=== PATIENT | female | born 1950 | race African-American/Black ===

== ENCOUNTER → 2016-03-15 | Outpatient (CLI) | payer OTHER, MEDICAID ==
--- NOTE | 2016-03-15 18:13 | MA ---
Screening Digital Mammogram With iCAD Indication: Routine screening. History of breast reduction surgery. Technique: Standard cephalocaudal and mediolateral oblique projections were obtained. This examinat ion was processed by the iCAD computer-aided detection system. Comparison: February 2015, January 2014 and November 2011. Breast density: Type B. Findings: CAD was reviewed. No suspicious microcalcifications, mass, or architectural distortion. Impression: Negative mammogram BI-RADS 1: Negative Recommendation: Routine screening is recommended in one year. [facility] will send a result letter to the patient. Negative mammography should not preclude additional workup of a clinically suspicious finding. The patient's information is entered into a reminder system with a target due date for her next mammo gram.
== END ==
LOC: FIMAGING 15:18
DX: Z12.31 Encounter for screening mammogram for malignant neoplasm of breast (principal)
CPT/HCPCS: G0202

== ENCOUNTER → 2016-04-13 | Outpatient (CLI) | payer OTHER, MEDICAID | LOC: BHCLAF 11:00 | PROVIDERS: ATTEND Internal Medicine Cardiovascular Disease | DX: I47.1 Supraventricular tachycardia (principal); I10 Essential (primary) hypertension; R00.2 Palpitations; G47.34 Idiopathic sleep related nonobstructive alveolar hypoventilation; E78.00 Pure hypercholesterolemia, unspecified | CPT/HCPCS: 93005-PO ==

== ENCOUNTER → 2016-09-10 | Outpatient (CLI) | payer OTHER, MEDICAID | LOC: CIMAGING 11:45 | PROVIDERS: ATTEND Internal Medicine Pulmonary Disease | DX: J98.11 Atelectasis (principal) | CPT/HCPCS: 71020-PO; 82164-90 ==

== ENCOUNTER 2017-02-03 13:03 | Emergency (ER) | payer OTHER, MEDICAID ==
[2017-02-03 13:28] VITALS: BP 132/76; PULSE 87; RESP 18; TEMP 97.9; O2SAT 91
--- NOTE | 2017-02-03 13:29 | EDPHY ---
HPI/HX/ROS/PE/MDM Narrative: CHIEF COMPLAINT: Painful bump and left groin HPI: The patient is a 66-year-old female with history of atrial fibrillation, not on anticoagulants, and no history of diabetes. The patient complains of a painful bump in her left groin that she noted approximately 1 week ago while in the shower. The area has decreased in size and there has been no drainage. She denies fever, surrounding redness or other systemic symptoms. REVIEW OF SYSTEMS: Aside from elements discussed in the HPI, a comprehensive 10-point review of systems was reviewed and is negative. PMH: Includes atrial fibrillation, arthritis, hypertension. No history of diabetes. Not on anticoagulants. SOCIAL HISTORY: Primary doctors located at [facility]. She denies alcohol or drug abuse. PHYSICAL EXAM: General:Patient is alert, in no acute distress. ENT:Eyes are normal to inspection. ENT inspection normal. Skin: Left groin. A painful area of fluctuance, measuring approximately the size of a reason, 1 cm in diameter is present in the skin crease of her left groin. It does not involve the labia. There is no surrounding erythema. There is no surrounding rash. There is no drainage. There are no genital lesions. Neuro: Oriented x3. Normal motor function. Normal sensory function. MDM: This patient presents with small area of fluctuance in her left groin skin fold. This is either a sebaceous cyst or possibly an early abscess. Given that the lesion is diminishing in size in severity, I think urgent drainage is not necessary. I gave the patient the option of trial of oral antibiotics verses incision and drainage here in the emergency department. I am somewhat concerned given the patient's habitus and location of the lesion in her groin that it will be at increased risk of infection should we break the skin barrier. The patient elects to try a course of oral antibiotics and understands that she may need to return to the emergency department for incision and drainage if this fails. General Time Seen by Provider: 02/03/17 13:14 Initial Vital Signs: Initial Vital Signs Temperature (C) 36.6 C 02/03/17 13:23 Heart Rate 87 02/03/17 13:23 Respiratory Rate 18 02/03/17 13:23 Blood Pressure 132/76 H 02/03/17 13:23 O2 Sat (%) 91 L 02/03/17 13:23 O2 Delivery Mode Room Air Allergies/Adverse Reactions: Benzodiazepines Allergy (Verified 02/03/17 13:12) codeine [Codeine] Allergy (Verified 02/03/17 13:12) fentanyl Allergy (Verified 02/03/17 13:12) Iodinated Contrast- Oral and IV Dye Allergy (Verified 02/03/17 13:13) meperidine HCl [From Demerol] Allergy (Verified 02/03/17 13:12) morphine Allergy (Verified 02/03/17 13:12) Penicillins Allergy (Verified 02/03/17 13:12) Home Medications: Medication Instructions Recorded Aspirin 325 mg (*) 02/03/17 Chlorthalidone 25 mg (*) 02/03/17 Diltiazem 02/03/17 Doxycycline Hyclate [Vibramycin] 100 mg PO BID #14 cap 02/03/17 Proventil Inhaler HFA (*) 02/03/17 Steroid Inhaler 02/03/17 VITAMIN D 02/03/17 Xopenex Hfa Inhaler (*) 02/03/17 Departure - Departure Disposition: Home, Routine, Self-Care Clinical Impression: Abscess Condition: Good Instructions: Abscess (ED) Additional Instructions: Take antibiotics as prescribed. If symptoms do not improve within the next 72 hours, or if the area gets bigger at any time, return to the ED and we will likely have to pretty the bump. Also return to the ED if you develop fever, severe pain, redness or other symptoms. Prescriptions: Doxycycline Hyclate [Vibramycin] 100 mg PO BID #14 cap
== END 2017-02-03 13:33 | disposition home or self-care (01) ==
LOC: CED 13:03
DX: L02.214 Cutaneous abscess of groin (principal); I10 Essential (primary) hypertension; Z79.82 Long term (current) use of aspirin

== ENCOUNTER 2017-06-07 11:27 | Emergency (ER) | payer OTHER, MEDICAID ==
[2017-06-07] MEDS ORDERED: ASPIRIN 81 MG CHEWABLE TAB PO ONE (11:50)
--- NOTE | 2017-06-07 12:10 | EDPHY ---
HPI/HX/ROS/PE/MDM Narrative: CHIEF COMPLAINT: Shortness of breath HPI: The patient is a 66-year-old female with numerous medical hip problems including history of prior blood clot, sarcoidosis. She states that she got" the flu"in the middle of May and was treated with steroids and albuterol nebulizer by her primary physician, but no x-ray was performed. She notes continuing cough and shortness of breath since that time as well as a decrease in energy. She also notes left calf pain that has been present for 1-2 weeks as well as some right shoulder pain. She denies chest pain. She denies fever or productive cough. She is not on anticoagulants. REVIEW OF SYSTEMS: Aside from elements discussed in the HPI, a comprehensive 10-point review of systems was reviewed and is negative. PMH: Includes sarcoidosis, history of DVT, obesity SOCIAL HISTORY: Retired, denies drug abuse. PHYSICAL EXAM: General:Patient is alert, in no acute distress. ENT:Eyes are normal to inspection. ENT inspection normal. Neck: Normal inspection. Full range of motion. Respiratory:No respiratory distress. Breath sounds normal bilaterally. Cardiovascular: Regular rate and rhythm. Strong peripheral pulses. Normal cap refill. Abdomen:The abdomen is nontender to palpation. There are no peritoneal signs. There are normal bowel sounds. Back: Normal to inspection. No tenderness to palpation. Skin: Normal color. No rash. Warm and dry. Extremities: Normal appearance. Full range of motion. Mild tenderness to the left calf is noted. Neuro: Oriented x3. Normal motor function. Normal sensory function. ED Course: Chest x-ray: Normal. Ultrasound left lower extremity: Negative for DVT or other abnormality. MDM: This patient presents to the emergency department with ongoing shortness of breath for at least 2-3 weeks. Chest x-rays negative for pneumonia or pneumothorax. The patient's D-dimer was mildly elevated but she is allergic to IV contrast dye. An ultrasound was performed of her leg which is negative for DVT. Given that this is negative and that her symptoms do not sound consistent with an acute pulmonary embolus, I do not think that emergent V/Q scan is indicated. I will have the patient follow up closely with her primary care physician. I see no signs of acute coronary syndrome or unstable angina. The patient is in no respiratory distress and her room air pulse ox is normal. - Data Points Imaging Results: Imaging Impressions Chest X-Ray 05/01/18 11:50 Impression: No acute findings in the chest. Extremity Venous Study 06/07/17 12:40 Impression: No deep venous thrombosis left leg. Findings and recommendations discussed with Emergency Department physician, Tony Ames MD at 13:15 hour, 06/07/2017. Final report concurs with initial preliminary interpretation. Laboratory Results: Laboratory Results 06/07/17 12:20 06/07/17 12:20 06/07/17 06/07/17 06/07/17 12:20 12:20 12:20 WBC 10.23 10^3/uL H 10^3/uL (3.80-9.50) RBC 4.88 10^6/uL 10^6/uL (4.18-5.33) Hgb 12.0 g/dL L g/dL (12.6-16.3) Hct 38.1 % % (38.0-47.0) MCV 78.1 fL L fL (81.5-99.8) MCH 24.6 pg L pg (27.9-34.1) MCHC 31.5 g/dL L g/dL (32.4-36.7) RDW 19.6 % H % (11.5-15.2) Plt Count 299 10^3/uL 10^3/uL (150-400) MPV 9.9 fL fL (8.7-11.7) Neut % (Auto) 78.8 % H % (39.3-74.2) Lymph % (Auto) 13.1 % L % (15.0-45.0) [place] % (Auto) 5.5 % % (4.5-13.0) Eos % (Auto) 1.8 % % (0.6-7.6) Baso % (Auto) 0.4 % % (0.3-1.7) Nucleat RBC Rel Count 0.0 % % (0.0-0.2) Absolute Neuts (auto) 8.07 10^3/uL H 10^3/uL (1.70-6.50) Absolute Lymphs (auto) 1.34 10^3/uL 10^3/uL (1.00-3.00) Absolute Monos (auto) 0.56 10^3/uL 10^3/uL (0.30-0.80) Absolute Eos (auto) 0.18 10^3/uL 10^3/uL (0.03-0.40) Absolute Basos (auto) 0.04 10^3/uL 10^3/uL (0.02-0.10) Absolute Nucleated RBC 0.00 10^3/uL 10^3/uL (0-0.01) Immature Gran % 0.4 % % (0.0-1.1) Immature Gran # 0.04 10^3/uL 10^3/uL (0.00-0.10) D-Dimer 0.63 ug/mLFEU H ug/mLFEU (0.00-0.50) Sodium 144 mEq/L mEq/L (135-145) Potassium 3.4 mEq/L L mEq/L (3.5-5.2) Chloride 103 mEq/L mEq/L (97-110) Carbon Dioxide 30 mEq/l mEq/l (22-31) Anion Gap 11 mEq/L mEq/L (8-16) BUN 17 mg/dL mg/dL (7-23) Creatinine 0.8 mg/dL mg/dL (0.6-1.0) Estimated GFR > 60 Glucose 100 mg/dL mg/dL (70-100) Calcium 9.2 mg/dL mg/dL (8.5-10.4) Creatine Kinase 192 IU/L H IU/L (0-156) CK-MB (CK-2) Fraction 1.01 ng/mL ng/mL (0.00-4.55) CK-MB (CK-2) % 0.5 % % (0.0-4.0) Creatine Kinase Interp NEGATIVE (NEGATIVE) Troponin I < 0.012 ng/mL ng/mL (0.000-0.034) Medications Given: Discontinued Medications Aspirin (Aspirin) 324 mg PO EDNOW ONE Stop: 06/07/17 11:51 Last Admin: 06/07/17 12:26 Dose: 324 mg General Time Seen by Provider: 06/07/17 11:50 Initial Vital Signs: Initial Vital Signs Temperature (C) 36.9 C 06/07/17 11:32 Heart Rate 85 06/07/17 11:32 Respiratory Rate 18 06/07/17 11:32 Blood Pressure 137/79 H 06/07/17 11:32 O2 Sat (%) 96 06/07/17 11:32 O2 Delivery Mode Room Air Allergies/Adverse Reactions: Benzodiazepines Allergy (Verified 06/07/17 11:44) codeine [Codeine] Allergy (Verified 06/07/17 11:44) fentanyl Allergy (Verified 06/07/17 11:44) Iodinated Contrast- Oral and IV Dye Allergy (Verified 06/07/17 11:44) meperidine HCl [From Demerol] Allergy (Verified 06/07/17 11:44) morphine Allergy (Verified 06/07/17 11:44) Penicillins Allergy (Verified 06/07/17 11:44) Home Medications: Medication Instructions Recorded Aspirin 325 mg (*) 02/03/17 Chlorthalidone 25 mg (*) 02/03/17 Diltiazem 02/03/17 Proventil Inhaler HFA (*) 02/03/17 VITAMIN D 02/03/17 Xopenex Hfa Inhaler (*) 02/03/17 Abreva (*) 06/07/17 Aspirin 325 mg (*) 06/07/17 Departure - Departure Disposition: Home, Routine, Self-Care Clinical Impression: Dyspnea Condition: Good Instructions: Dyspnea (ED) Additional Instructions: Follow-up with her primary care physician within 72 hr. Return to the emergency department for chest pain, shortness of breath, fever or other worsening of condition. Referrals: MARTHAACULLEN [Other] - As per Instructions
--- NOTE | 2017-06-07 12:30 | CPEKG ---
Heart Rate: 83 RR Interval: 723 P-R Interval: 200 QRSD Interval: 84 QT Interval: 392 QTC Interval: 461 P [place]: 74 QRS [place]: 2 T Wave [place]: 12 EKG Severity - ABNORMAL ECG - EKG Impression: SINUS RHYTHM EKG Impression: LEFT VENTRICULAR HYPERTROPHY Electronically Signed By: Nadir Mock 09-Jun-2017 07:52:17
[2017-06-07 12:36] LABS: CREATINE KINASE 192 IU/L (0-156)
[2017-06-07 12:40] LABS: PLATELET COUNT 299 10^3/uL (150-400)
[2017-06-07 13:32] VITALS: BP 119/76
== END 2017-06-07 13:35 | disposition home or self-care (01) ==
LOC: CED 11:27
DX: R06.00 Dyspnea, unspecified (principal); Z79.82 Long term (current) use of aspirin
CPT/HCPCS: 71046-PO; 80048-PO; 82550-PO; 82553-PO; 84484-PO; 85025-PO; 85378-PO; 93971-PO

== ENCOUNTER → 2017-11-04 | Outpatient (CLI) | payer OTHER, MEDICAID | LOC: BHFA 09:30 | PROVIDERS: ATTEND Internal Medicine Cardiovascular Disease | DX: R07.9 Chest pain, unspecified (principal); R06.02 Shortness of breath | CPT/HCPCS: 78452; 93017; A9500; J2785 ==

== ENCOUNTER 2017-12-14 09:02 | Observation (INO) | payer OTHER, MEDICAID ==
[2017-12-14] MEDS ORDERED: methylPREDNISolone SOD SUCC 125 MG/2 ML VIAL IVP ONE (09:05)
[2017-12-14] MEDS ORDERED: ASPIRIN EC 325 MG TAB PO ONE (09:05)
[2017-12-14] MEDS ORDERED: NS 1,000 ML IV ONE (09:05)
[2017-12-14] MEDS ORDERED: FAMOTIDINE 20 MG/NACL 50 ML IV ONE (09:05)
[2017-12-14 09:42] LABS: PLATELET COUNT 294 10^3/uL (150-400)
[2017-12-14 09:54] LABS: INR 0.97 (0.83-1.16); PROTIME(PATIENT) 13.1 SEC (12.0-15.0)
[2017-12-14] MEDS ORDERED: SIMETHICONE 80 MG TAB CHEW PO ONE ×2 (11:00→18:15)
[2017-12-14] MEDS: LEVALBUTEROL INHALER 200 PUFFS/15 GM MDI IH SCH ×3 (15:55→21:41)
[2017-12-14] MEDS: FAMOTIDINE 20 MG TAB PO SCH (19:31)
--- NOTE | 2017-12-14 22:44 | CPEKG ---
Test Reason : OPEN Blood Pressure : / mmHG Vent. Rate : 093 BPM Atrial Rate : 093 BPM P-R Int : 178 ms QRS Dur : 073 ms QT Int : 353 ms P-R-T Axes : 053 000 017 degrees QTc Int : 440 ms Sinus rhythm Consider left atrial enlargement Probable left ventricular hypertrophy Confirmed by Prosper Nicolas ([id number]) on 12/14/2017 10:43:51 PM Referred By: Confirmed By:Prosper Nicolas
[2017-12-15] MEDS: LEVALBUTEROL INHALER 200 PUFFS/15 GM MDI IH SCH ×2 (06:11→11:28)
[2017-12-15] MEDS ORDERED: ASPIRIN EC 325 MG TAB PO ONE (07:00)
[2017-12-15] MEDS ORDERED: FAMOTIDINE 20 MG/NACL 50 ML IV ONE (07:00)
[2017-12-15] MEDS ORDERED: methylPREDNISolone SOD SUCC 125 MG/2 ML VIAL IVP ONE (07:00)
[2017-12-15] MEDS: Diltiazem Hcl [Cartia Xt 180mg] 180 MG PO SCH ×2 (07:27→13:11)
[2017-12-15] MEDS: METOPROLOL SUCCINATE XR 25 MG TAB PO SCH ×2 (07:27→13:11)
[2017-12-15] MEDS: ASPIRIN 325 MG TAB PO SCH ×2 (08:48→09:18)
[2017-12-15] MEDS ORDERED: FLUTICASONE IH SCH (09:00)
[2017-12-15] MEDS ORDERED: CHLORTHALIDONE 25 MG TAB PO SCH (09:00)
[2017-12-15] MEDS ORDERED: VILANTEROL IH SCH (09:00)
--- NOTE | 2017-12-15 10:21 | PDANEPAE ---
ANE History of Present Illness [facility] ANE Past Medical History - Cardiovascular History Hx Hypertension: Yes Hx Arrhythmias: Yes - Pulmonary History Hx Oxygen in Use at Home: Yes O2 in Use at Home (L/minute): 2 Hx Sleep Apnea: Yes - Endocrine History Hx Diabetes: No - GI History GERD: mild GERD Comment: controlled ANE Review of Systems Review of systems is: negative Review of Systems: - Exercise capacity Exercise capacity: >=4 METS ANE Patient History - Allergies Allergies/Adverse Reactions: Benzodiazepines Allergy (Verified 06/07/17 11:44) codeine [Codeine] Allergy (Verified 06/07/17 11:44) fentanyl Allergy (Verified 06/07/17 11:44) Iodinated Contrast- Oral and IV Dye Allergy (Verified 06/07/17 11:44) meperidine HCl [From Demerol] Allergy (Verified 06/07/17 11:44) morphine Allergy (Verified 06/07/17 11:44) Penicillins Allergy (Verified 06/07/17 11:44) shellfish derived Allergy (Verified 12/07/17 17:06) sumatriptan [From Imitrex] Allergy (Verified 12/07/17 17:06) - Home Medications Home medications: home medication list seen and reviewed Home Medications: Aspirin [Aspirin 325 mg (*)] 325 mg PO DAILY 12/14/17 [Last Taken 12/14/17] Chlorthalidone [Chlorthalidone 25 mg (*)] 12.5 mg PO DAILY 12/14/17 [Last Taken 12/13/17] Diltiazem HCl [Cartia XT 180mg] 180 mg PO DAILY 12/14/17 [Last Taken 12/13/17] Famotidine [Pepcid 20 MG (*)] 20 mg PO BID 12/14/17 [Last Taken 12/13/17] Fluticasone/Vilanterol [Breo Ellipta 200-25 Mcg INH] 1 puffs IH DAILY 12/14/17 [ Last Taken 12/14/17 07:00] Levalbuterol Inhaler [Xopenex Hfa Inhaler (*)] 2 puffs IH QID 12/14/17 [Last Taken 12/14/17] Metoprolol Succinate Xr [Toprol Xl 25 mg (*)] 12.5 mg PO DAILY 12/14/17 [Last Taken 11/06/18] - NPO status NPO Status: no food or drink >8 hours - Anes Hx Anes Hx: no prior problems - Smoking Hx Smoking Status: Never smoked - Family Anes Hx Family Anes Hx: none ANE Labs/Vital Signs - Labs Result Diagrams: 12/14/17 09:20 12/14/17 09:20 - Vital Signs Vital Signs: reviewed preoperatively; see RN documention for details Blood Pressure: 143/85 Heart Rate: 71 Respiratory Rate: 12 O2 Sat (%): 92 Height: 183 cm Weight: 118.2 kg ANE Physical Exam - Airway Neck exam: FROM Mallampati Score: Class 3 Mouth exam: poor dentition - Pulmonary Pulmonary: no respiratory distress - Cardiovascular Cardiovascular: regular rate and rhythym - ASA Status ASA Status: III ANE Anesthesia Plan Total IV Anesthesia: Yes
[2017-12-15] MEDS ORDERED: ACETAMINOPHEN 500 MG TAB PO PRN (10:24)
[2017-12-15] MEDS ORDERED: HYDROmorphONE/DILAUDID 2 MG/ML INJ IVP PRN (10:24)
[2017-12-15] MEDS ORDERED: ALBUTEROL 3 ML DEYVIAL IH PRN (10:24)
[2017-12-15] MEDS ORDERED: NALOXONE HCL 0.4 MG/ML INJ IVP PRN (10:24)
[2017-12-15] MEDS ORDERED: DEXAMETHASONE 4 MG/ML VIAL IVP PRN (10:24)
[2017-12-15] MEDS ORDERED: ONDANSETRON 4 MG/2 ML VIAL IVP PRN ×2 (10:24→11:34)
[2017-12-15] MEDS ORDERED: oxyCODONE IR 5 MG TAB PO PRN (10:24)
--- NOTE | 2017-12-15 10:25 | POSTANESTH ---
Post Anesthetic Evaluation Cardiovascular Status: Similar to Pre-Op Cond Respiratory Status: Similar to Pre-op Cond. Level of Consciousness/Mental Status: Moderately Sleepy Pain Control: Adequate, Prn Tx Ordered Nausea/Vomiting Control: Adequate, Prn Tx Ordered Complications Possibly Related to Anesthesia: None Noted
[2017-12-15] MEDS ORDERED: MIDAZOLAM 2 MG/2 ML VIAL ONE (10:44)
[2017-12-15] MEDS ORDERED: LIDOCAINE 1% 300 MG/30 ML SDV ONE (10:44)
[2017-12-15] MEDS ORDERED: fentaNYL 100 MCG/2 ML INJ ONE (10:44)
[2017-12-15] MEDS ORDERED: IOPAMIDOL (ISOVUE-370) 150 ML BTL IV ONE (10:45)
[2017-12-15] MEDS ORDERED: PROPOFOL/EMULSION 500 MG/50 ML BOTTLE IV ONE (10:47)
[2017-12-15] MEDS ORDERED: LIDOCAINE 2% 100 MG/5 ML SYR ONE (11:03)
--- NOTE | 2017-12-15 11:06 | PDHPUP ---
History & Physical Update H&P update statement: This history and physical update is based on an assessment of the patient which was completed after admission or registration (within 24 hours), but prior to the surgery/procedure. H&P update: H&P reviewed & patient examined, no change in patient's condition since H&P completed
[2017-12-15] MEDS ORDERED: ATROPINE SULFATE 1 MG/10 ML SYR IVP PRN (11:34)
[2017-12-15] MEDS ORDERED: NITROGLYCERIN 0.4 MG BTL SL PRN (11:34)
--- NOTE | 2017-12-15 11:46 | CPIP ---
DATE OF PROCEDURE: 12/14/2017 PROCEDURE: 1. Coronary angiography. 2. Left ventriculography. INDICATION: 1. Chest pain concerning for an anginal equivalent. 2. Abnormal nuclear stress test that is intermediate risk. ACCESS: Patient was prepped and draped in sterile fashion. 1% lidocaine was used to anesthetize the right inguinal region. A 6-[place] introducer sheath was placed selectively into the right common fe moral artery via modified Seldinger technique. CORONARY ANGIOGRAPHY: A 6-[place] JL4 was advanced to left main coronary artery and images obtained. The left main coronary artery trifurcated into an LAD, ramus, and circumflex coronary arteries. The left main coronary artery appeared normal. Left anterior descending coronary artery gave rise to 1 prominent diagonal branch. The left anterior descending coronary artery and its diagonal branch appe ared normal. The ramus coronary artery was a small vessel. The ramus coronary artery appeared albin l. The circumflex coronary artery is a moderate-sized vessel. The circumflex coronary artery gave r ise to 1 prominent OM branch, as well as 1 smaller OM branch. The circumflex coronary artery and its complement of OM branches appeared normal. 6-[place] JR4 was advanced to the right coronary artery and images obtained. The right coronary arter y is dominant. The right coronary artery appeared normal. LEFT VENTRICULOGRAPHY: A 6-[place] pigtail catheter was advanced in the left ventricle and images obt ained. Left ventricle is normal size, had normal systolic function. Estimated ejection fraction was 60%. COMPLICATIONS: None. CONCLUSIONS: 1. Normal coronary arteries. 2. Normal left ventricular size and systolic function. /[id number]/MODL
[2017-12-15] MEDS: FAMOTIDINE 20 MG TAB PO SCH (12:19)
[2017-12-15] MEDS ORDERED: ACETAMINOPHEN 325 MG TAB PO PRN (13:12)
[2017-12-15] MEDS ORDERED: SIMETHICONE 80 MG TAB CHEW PO ONE (15:30)
[2017-12-15 15:39] VITALS: BP 119/74
[2017-12-15] MEDS ORDERED: PNEUMOC 13-VAL CONJ-DIP CRM/PF 0.5 ML SYR IM ONE (15:46)
== END 2017-12-15 16:39 | disposition home or self-care (01) ==
LOC: FCATH 09:02 → F2W 13:22
PROVIDERS: ADMIT Internal Medicine Cardiovascular Disease; ATTEND Internal Medicine Cardiovascular Disease
DX: R07.9 Chest pain, unspecified (principal); R94.39 Abnormal result of other cardiovascular function study; I10 Essential (primary) hypertension; J45.909 Unspecified asthma, uncomplicated
CPT/HCPCS: 90670; 93005; 93458; C1760; G0009; J1200; J1644; J2001; J2704; J2930; Q9967; J2250; J3010

== ENCOUNTER 2018-05-16 05:52 | Inpatient (IN) | payer OTHER, MEDICAID ==
--- NOTE | 2018-05-15 15:34 | PDGENHP ---
History & Physical Chief Complaint: Left knee osteoarthritis History of Present Illness: Claudia is a pleasant 67 year old female who presents to the office with left knee osteoarthritis. She has undergone conservative treatment and is to the point where it s requiring a total knee arthroplasty. She has been cleared by her geology professor for the procedure and has seen her maintainer central office prior to the procedure as well. Pertinent Past, Social, Family History: PMH: anxiety. arthritis, asthma, blood clots, heart problems, HTN, lung disease. SH: nonsmoker. FH: non-contributory Relevant Physical Exam: The patient has moderate effusion noted to the knee. She is gapping to a valgus stress with a firm endpoint suggesting loss of cartilage height. She is tender to the osteochondral junction of the medial side more so than the lateral side. She is nontender to the actual joint line medial or laterally. X-ray exam shows [id number] osteoarthritic changes to the medial compartment as well as the patellofemoral compartment. Cardiorespiratory Assessment: RRR, CTA
[2018-05-16] MEDS ORDERED: ROPIVACAINE 0.2% 80 MG, EPINEPHrine 0.2 MG, KETOROLAC TROMETHAMINE 30 MG, morphINE 10 M... IU ONE (06:00)
[2018-05-16] MEDS ORDERED: TRANEXAMIC ACID 3,000 MG in NS (SYRINGE) 50 ML IRR ONE (06:00)
[2018-05-16] MEDS ORDERED: CLINDAMYCIN 900 MG/DEXTROSE 50 ML IV ONE (06:02)
[2018-05-16] MEDS ORDERED: LR 1,000 ML IV ONE (06:04)
[2018-05-16] MEDS ORDERED: THROMBIN (BOVINE) 5,000 UNIT VIAL TP ONE (06:30)
[2018-05-16] MEDS ORDERED: CALCIUM CHLORIDE 1 GM/10 ML INJ ONE (06:30)
[2018-05-16] MEDS ORDERED: TRANEXAMIC ACID 3,000 MG/50 ML BAG IRR ONE (06:31)
[2018-05-16] MEDS ORDERED: BUPIVACAINE/EPI 0.5% 30 ML SDV ONE (06:36)
[2018-05-16] MEDS ORDERED: BACITRACIN 50,000 UNITS/10 ML SYR IRR ONE (06:37)
[2018-05-16] MEDS ORDERED: POLYMYXIN B SULFATE 500,000 UNIT/10 ML SYR IRR ONE (06:37)
--- NOTE | 2018-05-16 06:49 | PDANEPAE ---
ANE History of Present Illness OA here for L TKA ANE Past Medical History - Cardiovascular History Hx Hypertension: Yes Hx Arrhythmias: Yes Hx Chest Pain: Yes Hx Coronary Artery / Peripheral Vascular Disease: No Hx CHF / Valvular Disease: No Hx Palpitations: Yes Cardiovascular History Comment: HLD, DVT, Afib with RVR s/p ablation, pt avoids caffeine and chocolate. - Pulmonary History Hx COPD: No Hx Asthma/Reactive Airway Disease: Yes Hx Recent Upper Respiratory Infection: No Hx Oxygen in Use at Home: Yes Hx Sleep Apnea: No Sleep Apnea Screening Result - Last Documented: Positive Pulmonary History Comment: Sarcoidosis, Nocturnal hypoxia, uses 2L/min at night , JAYLIN triggers, pt reports possible central sleep apnea. - Neurologic History Hx Cerebrovascular Accident: No Hx Seizures: No Hx Dementia: No Neurologic History Comment: Migraines. - Endocrine History Hx Diabetes: No - Renal History Hx Renal Disorders: No - Liver History Hx Hepatic Disorders: No - Neurological & Psychiatric Hx Hx Neurological and Psychiatric Disorders: Yes Neurological / Psychiatric History Comment: Migraines, situational anxiety. - Cancer History Hx Cancer: No - Congenital Disorder History Hx Congenital Disorders: No - GI History Hx Gastrointestinal Disorders: Yes Gastrointestinal History Comment: GERD, IBS-constipation. - Other Health History Other Health History: Obesity, epistaxis. Upper dentures, lower partial, glasses. - Chronic Pain History Chronic Pain: Yes - Surgical History Prior Surgeries: L shoulder surgery ([facility]) 2005. Hysterectomy 1988. L Heart Catheterization 12/2017. Afib Ablation 2002 ANE Review of Systems Review of Systems: - Exercise capacity Exercise capacity: >=4 METS ANE Patient History - Allergies Allergies/Adverse Reactions: Benzodiazepines Allergy (Verified 04/27/18 10:15) Dyspnea codeine [Codeine] Allergy (Verified 04/27/18 10:15) Dyspnea fentanyl Allergy (Verified 04/27/18 10:15) Dyspnea Iodinated Contrast- Oral and IV Dye Allergy (Verified 06/07/17 11:44) meperidine HCl [From Demerol] Allergy (Verified 04/27/18 10:15) Itching morphine Allergy (Verified 04/27/18 10:15) Dyspnea Penicillins Allergy (Verified 04/27/18 10:15) Itching shellfish derived Allergy (Verified 12/07/17 17:06) sumatriptan [From Imitrex] Allergy (Verified 04/27/18 10:15) Dyspnea - Home Medications Home medications: home medication list seen and reviewed Home Medications: Chlorthalidone [Chlorthalidone 25 mg (*)] 12.5 mg PO HS 12/14/17 [Last Taken 07/25] Famotidine [Pepcid 20 MG (*)] 20 mg PO HS 12/14/17 [Last Taken 12/13/17] Fluticasone/Vilanterol [Breo Ellipta 200-25 Mcg INH] 1 puffs IH DAILY 12/14/17 [ Last Taken 12/14/17 07:00] Levalbuterol Inhaler [Xopenex Hfa Inhaler (*)] 1 puffs IH QID PRN 12/14/17 [ Last Taken 12/14/17] Metoprolol Succinate Xr [Toprol Xl 25 mg (*)] 12.5 mg PO DAILY 12/14/17 [Last Taken 12/13/17] Acetaminophen [Tylenol 325mg (*)] 325 mg PO Q6HRS PRN 04/27/18 [Last Taken Unknown] Aspirin [Aspirin 325 mg (*)] 325 mg PO DAILY 04/27/18 [Last Taken Unknown] Cholecalciferol Vit D3 [Vitamin D3 (*)] 1,000 units PO DAILY 04/27/18 [Last Taken Unknown] Multivitamins [Multivitamin (*)] 1 each PO DAILY 04/27/18 [Last Taken Unknown] Diltiazem 05/12/18 [Last Taken Unknown] - NPO status NPO Status: no food or drink >8 hours NPO Since - Liquids (Date): 05/15/18 NPO Since - Liquids (Time): 23:30 NPO Since - Solids (Date): 05/15/18 NPO Since - Solids (Time): 20:30 - Anes Hx Anes Hx: post operative nausea and vomiting - Smoking Hx Smoking Status: Never smoked - Family Anes Hx Family Anes Hx: none Family Hx Anesthesia Complications: None. ANE Labs/Vital Signs - Vital Signs Vital Signs: reviewed preoperatively; see RN documention for details Height: 182.88 cm Weight: 117.934 kg ANE Physical Exam - Airway Neck exam: FROM Mallampati Score: Class 3 Mouth exam: poor dentition, dentures - Pulmonary Pulmonary: no respiratory distress - Cardiovascular Cardiovascular: regular rate and rhythym - ASA Status ASA Status: III ANE Anesthesia Plan Anesthesia Plan: GA with mask, spinal Regional Anesthesia: single shot NB, adductor canal FNB Total IV Anesthesia: Yes
[2018-05-16] MEDS ORDERED: PROPOFOL/EMULSION 500 MG/50 ML BOTTLE IV ONE ×2 (07:06→08:17)
[2018-05-16] MEDS ORDERED: LIDOCAINE 2% 100 MG/5 ML SYR ONE (07:11)
[2018-05-16] MEDS ORDERED: ROPIVACAINE 0.2% 80 MG, EPINEPHrine 0.2 MG, KETOROLAC TROMETHAMINE 30 MG in SYRINGE 0 ML IU ONE (07:15)
[2018-05-16] MEDS ORDERED: HYDROCODONE/APAP 5/325 TAB PO PRN (07:57)
[2018-05-16] MEDS ORDERED: ONDANSETRON 4 MG/2 ML VIAL IVP PRN ×2 (07:57→09:05)
[2018-05-16] MEDS ORDERED: HYDROmorphONE/DILAUDID 1 MG/ML INJ IVP PRN (07:57)
[2018-05-16] MEDS ORDERED: NALOXONE HCL 0.4 MG/ML INJ IVP PRN (07:57)
[2018-05-16] MEDS ORDERED: PROMETHAZINE HCL 25 MG/ML INJ IVP PRN ×2 (07:57→09:05)
[2018-05-16] MEDS ORDERED: ACETAMINOPHEN 500 MG TAB PO PRN (07:57)
[2018-05-16] MEDS ORDERED: oxyCODONE IR 5 MG TAB PO PRN ×2 (07:57→09:05)
[2018-05-16] MEDS ORDERED: LACTULOSE 20 GM/30 ML UDCUP PO PRN (09:05)
[2018-05-16] MEDS ORDERED: TEMAZEPAM 15 MG CAP PO PRN (09:05)
[2018-05-16] MEDS ORDERED: POLYETHYLENE GLYCOL 3350 17 GM PKT PO PRN (09:05)
[2018-05-16] MEDS ORDERED: BISACODYL 10 MG SUPP PR PRN (09:05)
[2018-05-16] MEDS ORDERED: TAPENTADOL HCL 50 MG TAB PO PRN (09:05)
[2018-05-16] MEDS ORDERED: DIPHENOXYLATE/ATROPINE LOMOTIL 1 TAB PO PRN (09:05)
[2018-05-16] MEDS ORDERED: LEVALBUTEROL INHALER 200 PUFFS/15 GM MDI IH PRN (09:05)
[2018-05-16] MEDS ORDERED: MAGNESIUM HYDROXIDE 30 ML UDCUP PO PRN (09:05)
[2018-05-16] MEDS ORDERED: CYCLOBENZAPRINE 10 MG TAB PO PRN (09:05)
[2018-05-16] MEDS ORDERED: METOCLOPRAMIDE 10 MG/2 ML VIAL IVP PRN (09:05)
[2018-05-16] MEDS ORDERED: ONDANSETRON DISINTEGRATING 4 MG TAB PO PRN (09:05)
[2018-05-16] MEDS ORDERED: diphenhydrAMINE 25 MG CAP PO PRN (09:05)
[2018-05-16] MEDS ORDERED: PROMETHAZINE HCL 25 MG SUPPR PR PRN (09:05)
--- NOTE | 2018-05-16 09:05 | POSTOPPROG ---
Post Op Note Date of Operation: 05/16/18 Surgeon: Glenna Dubois 3D Technologist: coltrain Anesthesia: Epidural, IV Sedation, Other (Specify) Pre-op Diagnosis: l knee oa Procedure: l tkr Inf/Abcess present in the surg proc area at time of surgery?: No Depth: Deep Incisional (Fascial) EBL: 100-500
--- NOTE | 2018-05-16 09:14 | POSTANESTH ---
Post Anesthetic Evaluation Cardiovascular Status: Normal, Stable, Similar to Pre-Op Cond Respiratory Status: Normal, Stable, Requires Airway Assist Level of Consciousness/Mental Status: Moderately Sleepy Pain Control: Adequate, Prn Tx Ordered Nausea/Vomiting Control: Adequate, Prn Tx Ordered Complications Possibly Related to Anesthesia: None Noted
[2018-05-16] MEDS ORDERED: LABETALOL HCL 5 MG/ML 20 ML MDV ONE (10:15)
--- NOTE | 2018-05-16 10:25 | GOP ---
[f rep st] OPERATIVE REPORT DATE OF OPERATION: 05/16/2018 SURGEON: Glenna Dubois MD ACCOUNTING COORDINATOR: Tommy Lozano, CSFA, LSA ANESTHESIA: By epidural, plus adductor canal nerve block and IV sedation. PREOPERATIVE DIAGNOSIS: Left knee osteoarthritis. POSTOPERATIVE DIAGNOSIS: Left knee osteoarthritis. PROCEDURE PERFORMED: Left total knee arthroplasty. FINDINGS: INDICATIONS: This is a 67-year-old female with a several year history of left knee pain worsening wi th use and with time despite multiple conservative measures. Radiographic studies reveal ossific sig nificant osteoarthritic changes. She wishes to have surgery in order to resolve the problem. DESCRIPTION OF PROCEDURE: Patient was brought to the operating room after the left side had been bailey ntified as correct side by the patient, nurse, and physician. Once in the operating room, she was gi carlie an epidural nerve block. She was then given IV sedation. She had a tourniquet placed around the upper portion the left thigh. The left lower extremity sterilely prepped and draped in usual fashio n using KHALIDA/solution. Once prepped and draped, the limb was exsanguinated, tourniquet inflated 250 m mHg. A linear incision was made on the anterior portion of the knee, with sharp dissection carried down th rough the skin and subcutaneous layers with bleeding controlled using electrocautery. The medial par apatellar incision was then made through the extensor mechanism with patella brought to the side, but not everted. She was noted to have grade IV chondral changes of the patellofemoral joint with grade III chondral changes noted in the medial lateral compartments. ACL, as well as the medial lateral m eniscus were removed. Drill hole was made 1 cm anterior to the intercondylar notch with an intramedu llary guide placed within the femur set at 5 degrees of varus-valgus, and set to remove 10 mm of bone . Once pinned into place, oscillating saw was used to remove the distal portion of the femur. Once achieving a smooth cut, the distal cutting guide was removed. The knee was brought to further flexio n. The posterior condyles were debrided of any remaining cartilage. The sizing guide was put in amari ce, noted a size 6 femur seemed to fit best without notching the anterior cortex of the femur; theref ore, drill holes were made, and a size six 4-in-1 cutting block was put into place, and anterior, pos terior, and chamfer cuts were made. The size 6 trial was put in place noted to fit securely. The kn ee was able to achieve full extension suggesting an adequate amount of bone removed and lug holes wer e drilled for the femoral component. Femoral trial was then removed. Attention was turned to the tibia, which was brought to maximal flexion. With the tibia subluxed ant eriorly, external tibial guide was put into place, set in neutral varus-valgus, and set in slight pos terior slope. Was set to remove 2 mm of bone from the low side of the tibia, which was the lateral s bailey of the tibia. Once pinned into place, a drop vane was used to ensure proper alignment. Once prop er alignment was ensured, locking pin was put into place. An oscillating saw was used to remove the proximal portion of the tibia. Femoral trial, tibial trial, and trial liner were put into place. Th e knee was able to achieve full extension, suggesting an adequate amount of bone had been removed. Trials were then removed from the knee. The knee was brought back to maximal flexion. Tibia subluxe d anteriorly. Multiple sizers were placed on the cut surface of the tibia and a size 5 fit best. It was therefore placed in slight external rotation, pinned into place. Keel punch passed through the trial. The trial was then removed and the drill guide for press-fit component was put into place and drill holes were made. At which point, a size 5 Triathlon Tritanium tibial component from Rodney w as put into place and noted to fit securely. A size 6 left cruciate-retaining Triathlon Tritanium pr ess-fit component was put in place and noted to fit securely. Trial liners were again placed within the tibial tray and noted a 9 mm liner seemed to fit best. It gave good stability, as well as good r khalida of motion; therefore, a 9 mm size 5 Triathlon polyethylene liner was put into place and noted to fit securely. The knee was brought to full extension. Patella was then everted. Tissue was debrided from around t he patella. It was measured to be 24 mm in thickness. Oscillating saw was used to remove the portrait studio photographer ior portion of the patella, leaving 15 mm of bone. Multiple sizes were trialed on the patella and no lorenzo a 32 mm button fit best. Lug holes were drilled for a patellar component and a Triathlon Triannai um 32 mm asymmetric patella was put into place and noted to fit securely. Joint cocktail was injected into the posterior capsule, the periosteum of the femur, the tibia, and t he extensor mechanism. Tranexamic acid was irrigated through the wound and the tourniquet was deflat ed at 37 minutes. Bleeding was controlled using electrocautery. The wound was then closed in layers to include 0 Vicryl suture in a hdlfgv-nk-[id number] type stitch for the extensor mechanism with 0 Vicryl , 2-0 Vicryl suture for the subcutaneous layers. Plasma gel was injected external to the extensor me chanism, and a 3-0 V-Loc suture in a running subcuticular stitch was used to close the skin with 30 c c of Marcaine infused around the actual incision, itself. The wound was then dressed with Steri-Stri ps, Xeroform, 4 x 4, wrapped in Kerlix. Leg was completely undraped in the operating room, tournique t removed from the thigh, and an Dean wrap placed around the knee. Patient was then woken up, transfe rred onto a stretcher, and sent to recovery room in good condition. TOURNIQUET TIME: 37 minutes. /[id number]/MODL
[2018-05-16] MEDS ORDERED: LABETALOL HCL 5 MG/ML 20 ML MDV IV ONE (10:30)
--- NOTE | 2018-05-16 10:44 | PDMN ---
Medical Necessity Medical necessity: Pt meets IP criteria per MD; est los >2 mn s/p L TKA (cpt 86728); hx lung disease, nocturnal hypoxia (uses 2L O2 at night), DVT, AFIB w/ RVR s/p ablation, HTN, Obesity, ASA 3; per H&P & order 05/16/18
[2018-05-16] MEDS: LR 1,000 ML IV SCH (10:56)
[2018-05-16] MEDS: METOPROLOL SUCCINATE XR 25 MG TAB PO SCH (11:00)
[2018-05-16] MEDS: DILTIAZEM CD 180 MG CAP PO SCH (11:01)
[2018-05-16] MEDS: KETOROLAC 15 MG/1 ML SDV IVP SCH ×3 (11:04→23:32)
[2018-05-16] MEDS: traMADol 50 MG TAB PO SCH ×2 (12:19→17:17)
[2018-05-16] MEDS: ACETAMINOPHEN 325 MG TAB PO SCH ×2 (14:17→21:56)
[2018-05-16] MEDS: CLINDAMYCIN 600 MG/DEXTROSE 50 ML IV SCH ×2 (14:45→23:37)
[2018-05-16] MEDS ORDERED: FAMOTIDINE 20 MG TAB PO SCH (21:00)
[2018-05-16] MEDS: CHLORTHALIDONE 25 MG TAB PO SCH (21:53)
[2018-05-16] MEDS: FAMOTIDINE 20 MG TAB PO SCH (21:55)
[2018-05-16] MEDS: SENNOSIDES/DOCUSATE SODIUM TAB PO SCH (21:56)
[2018-05-17] MEDS: traMADol 50 MG TAB PO SCH ×4 (01:57→16:46)
[2018-05-17] MEDS: LR 1,000 ML IV SCH (04:56)
[2018-05-17] MEDS: KETOROLAC 15 MG/1 ML SDV IVP SCH (05:00)
[2018-05-17] MEDS: ACETAMINOPHEN 325 MG TAB PO SCH ×5 (05:05→22:31)
[2018-05-17] MEDS: CLINDAMYCIN 600 MG/DEXTROSE 50 ML IV SCH (08:13)
[2018-05-17] MEDS: METOPROLOL SUCCINATE XR 25 MG TAB PO SCH (08:14)
[2018-05-17] MEDS: DILTIAZEM CD 180 MG CAP PO SCH (08:15)
[2018-05-17] MEDS: SENNOSIDES/DOCUSATE SODIUM TAB PO SCH ×2 (08:15→20:42)
[2018-05-17] MEDS: RIVAROXABAN 10 MG TAB PO SCH (08:15)
[2018-05-17] MEDS: FAMOTIDINE 20 MG TAB PO SCH ×2 (08:16→20:43)
[2018-05-17] MEDS: FLUTICASONE IH SCH (08:32)
[2018-05-17] MEDS: VILANTEROL IH SCH (08:32)
[2018-05-17] MEDS ORDERED: METOPROLOL SUCCINATE XR 25 MG TAB PO SCH (09:00)
--- NOTE | 2018-05-17 10:47 | ASMTCMCOM ---
CM Note CM Note Notes: Pt had planned knee surgery, resides with spouse. Pt was pre-arranged by MD office with [facility] which pt does want. Home care orders needed. PT rec home care today. D/c plan of care: Home with [facility] Date Signed: 05/17/2018 10:46 AM Electronically Signed By:JACOB Mccord
--- NOTE | 2018-05-17 14:04 | SOAPPROG ---
SOAP Progress Note Assessment/Plan: Assessment: Claudia is POD #1 s/p LTKA. She is doing ok but has been struggling with nausea with her pain medication. This seems to be improving today. She has also had some hypotension which has been stable. PE: Dressing is clean and dry. Gentle ROM with mild pain. NV intact LLE. Calf is soft to compression without pain. Plan: Continue PT/OT. Plan on keeping her overnight to ensure BP is stable and get the nausea and pain under control. Plan on d/c home tomorrow with home health if she improves. 05/17/18 14:01 Objective: Vital Signs Temp Pulse Resp BP Pulse Ox 36.5 C 79 18 103/67 97 05/17/18 11:06 05/17/18 11:06 05/17/18 11:06 05/17/18 11:06 05/17/18 11:06 Laboratory Results 05/17/18 04:41 05/16/18 05/17/18 05/18/18 05:59 05:59 05:59 Intake Total 2325 Output Total 750 Balance 1575
[2018-05-17] MEDS: CHLORTHALIDONE 25 MG TAB PO SCH (20:43)
[2018-05-18] MEDS: traMADol 50 MG TAB PO SCH ×3 (01:01→14:05)
[2018-05-18] MEDS: ACETAMINOPHEN 325 MG TAB PO SCH ×3 (04:10→15:06)
[2018-05-18] MEDS: SENNOSIDES/DOCUSATE SODIUM TAB PO SCH (07:58)
[2018-05-18] MEDS: RIVAROXABAN 10 MG TAB PO SCH (07:58)
[2018-05-18] MEDS: FAMOTIDINE 20 MG TAB PO SCH (07:58)
[2018-05-18] MEDS: METOPROLOL SUCCINATE XR 25 MG TAB PO SCH (09:29)
[2018-05-18] MEDS: DILTIAZEM CD 180 MG CAP PO SCH (09:29)
[2018-05-18] MEDS: FLUTICASONE IH SCH (09:30)
[2018-05-18] MEDS: VILANTEROL IH SCH (09:30)
[2018-05-18 11:13] VITALS: BP 118/68
--- NOTE | 2018-05-18 13:03 | SOAPPROG ---
SOAP Progress Note Assessment/Plan: Assessment: Patient s/p left TKA - POD 2 Left knee is feeling better Complaining of burning with urination - rule out UTI Plan: Pain management: pain is well controlled on oral pain meds. Currently taking Celebrex and Tylenol. VTE ppx: Xarelto for 10 days post-op, cont BENJIE and SCDs Anemia: level is expected initially postop. Asymptomatic. Continue to monitor D/c planning: Patient has done better than anticipated and would like to be discharged to home today with home health. Ordered UA and culture to rule out UTI prior to d/c 05/18/18 13:02 Subjective: Patient states she is doing well, her left knee is feeling better. Patient is taking Tylenol and Celebrex for pain. Her BP has been more stable today. She has been noticing burning with urination. States she has had UTI's in the past, but the last one was a couple years ago. She denies fever, chills or feeling ill. She also denies shortness of breath, chest pain. Objective: Vital Signs Temp Pulse Resp BP Pulse Ox 36.7 C 86 16 118/68 98 05/18/18 11:12 05/18/18 11:12 05/18/18 11:12 05/18/18 11:12 05/18/18 11:12 Laboratory Results 05/18/18 04:56 05/17/18 05/18/18 05/19/18 05:59 05:59 05:59 Intake Total 2325 1300 450 Output Total 750 Balance 1575 1300 450 Patient resting comfortably in bed, no acute distress. LLE: Bulky dressing as some bloody drainage, I asked nurse to change dressings. Lower leg compartments are soft and nontender. She can actively DF and PF left foot and great toe. Grossly NVI distally. ICD10 Worksheet Patient Problems: Problems Problem Status Onset Unilateral primary osteoarthritis, left knee Acute - ICD10 Problem Qualifiers (1) Unilateral primary osteoarthritis, left knee
--- NOTE | 2018-05-18 14:46 | PDDCSUM ---
Discharge Summary Discharge Summary: ADMISSION DIAGNOSIS: Left knee severe degenerative arthritis DISCHARGE DIAGNOSIS: Left knee severe degenerative arthritis OPERATION PERFORMED: May 16, 2018 Left total knee arthroplasty POSTOPERATIVE COMPLICATIONS: None CONDITION ON DISCHARGE: Improved DESCRIPTION OF HOSPITAL COURSE: The patient was admitted to the hospital on the morning of surgery and underwent a left total knee arthroplasty. Postoperatively , patient was treated with multimodal DVT prophylaxis, including Xarelto, SCDs and BENJIE hose. Patient was seen by PT and made good progress with ambulation and stairs. Home health was recommended. On the second post-operative day the patients H&H was 10.8/34.4. Patient was able to void spontaneously. However she was complaining of burning with urination on POD 2. She recalls having UTI' s in the past, the most recent was a couple years ago. UA and urine culture were ordered; UA was negative for nitrate and leukocyte esterase. Culture was pending at the time of discharge. If urine culture is positive, patient will be treated for UTI on an outpatient basis. At the time of discharge, patient was afebrile, wound dressing was intact and dry. There was mild bloody drainage on the bulky surgical dressing, this was changed by her nurse prior to discharge. Patient is walking with a walker. DISPOSITION: The patient is discharged home with non-[facility] home health. Patient may progress to full weightbearing on the left lower extremity as tolerated. BENJIE stockings and Xarelto for 10 days post-operatively. Patient had Celebrex electronically prescribed to her pharmacy by Dr. Dubois's office. She is also taking Tylenol for pain. The patient will be seen by Dr. Boone office in approximately 14 days. If there are any problems, patient is to call Dr. Boone office.
--- NOTE | 2018-05-18 14:56 | PDIAF ---
- Diagnosis Diagnosis: Left knee osteoarthritis Code Status: Full Code - Medication Management Discharge Medications: electronically signed and located in the Home Medication List. - Orders Services needed: Physical Therapy, Occupational Therapy Diet Recommendation: no restrictions on diet Diet Texture: Regular Texture Diet Additional Instructions: WBAT LLE. Initiate PT and HEP for ROM, strengthening, and gait training. Keep dressing clean and dry for 7 days and then may removed dressing. TEDs and Xarelto x 10 days post op. Follow up in 14 days for repeat evaluation and wound check. - Follow Up Care Current Providers and Referrals: PALAK HAWKINS [Primary Care Provider] - Glenna Dubois MD [Medical Doctor] - follow up in 2 weeks
--- NOTE | 2018-05-18 15:03 | PDIAF ---
- Diagnosis Diagnosis: Left knee osteoarthritis Code Status: Full Code - Medication Management Discharge Medications: electronically signed and located in the Home Medication List. - Orders Services needed: Home Care, Physical Therapy, Occupational Therapy Home Care Face to Face: I certify that this patient was under my care and that I had the required [id number] encounter meeting the encounter requirements on the discharge day. My findings support the fact that the patient is homebound as defined in Home Care Face to Face Continued: CMS Chapter 7 Medicare Benefits Manual 30.1.1 , The condition of the patient is such that there exists a normal inability to leave home and consequently, leaving home would require a considerable and taxing effort. Diet Recommendation: no restrictions on diet Diet Texture: Regular Texture Diet Additional Instructions: WBAT LLE. Initiate PT and HEP for ROM, strengthening, and gait training. Keep dressing clean and dry for 7 days and then may removed dressing. TEDs and Xarelto x 10 days post op. Follow up in 14 days for repeat evaluation and wound check. - Follow Up Care Current Providers and Referrals: PALAK HAWKINS [Primary Care Provider] - Glenna Dubois MD [Medical Doctor] - follow up in 2 weeks
--- NOTE | 2018-05-19 08:53 | ASMTLACE ---
LACE Length of stay for Answers: 3 days current admission Acuity / Level of Answers: Yes Care: Did the patient have an inpatient admission? Comorbidities - select Answers: Opioid dependence all that apply / Chronic pain Other Notes: HTN; DVT; AFib # of Emergency department Answers: 0 visits in the last 6 months Score: 11 Date Signed: 05/19/2018 08:52 AM Electronically Signed By:JACOB Mccord
--- NOTE | 2018-05-19 08:54 | ASMTCMCOM ---
CM Note CM Note Notes: Yesterday pt went home with [facility], orders were sent in [employer]. Date Signed: 05/19/2018 08:53 AM Electronically Signed By:JACOB Mccord
--- NOTE | 2018-05-19 10:54 | ASDISCHSUM ---
Discharge Information Plan Status:Home with Home Health Medically Cleared to Leave: Discharge Date:05/18/2018 03:46 PM CM D/C Disposition: ADT D/C Disposition:[id number] Projected Discharge Date:05/17/2018 11:00 AM Transportation at D/C: Discharge Delay Reason: Follow-Up Date:05/17/2018 11:00 AM Discharge Slot: Final Diagnosis: Placement Information Referral Type:*Home Health Care Services Referral ID:[id number] Provider Name:[facility] [place] Address 1:[address] Address 2: City:[place] Selection Factors: State:[place] Patient Contact Information Contact Name:NEYMAR Relationship:Life Partner Address: Home Phone: City: [facility] Phone: [facility]/Zip Code: Email: Financial Information Financial Class:Medicare Primary Plan Desc:MEDICARE INPATIENT Primary Plan Number:[id number] Secondary Plan Desc:MED[place] Secondary Plan Number:[id number] Assessment Information LACE LACE Length of stay for Answers: 3 days current admission Acuity / Level of Answers: Yes Care: Did the patient have an inpatient admission? Comorbidities - select Answers: Opioid dependence all that apply / Chronic pain Other Notes: HTN; DVT; AFib # of Emergency department Answers: 0 visits in the last 6 months Score: 11 Date Signed: 05/19/2018 08:52 AM Electronically Signed By:JACOB Mccord [facility] Progress Note CM Note CM Note Notes: Pt had planned knee surgery, resides with spouse. Pt was pre-arranged by MD office with [facility] which pt does want. Home care orders needed. PT rec home care today. D/c plan of care: Home with [facility] Date Signed: 05/17/2018 10:46 AM Electronically Signed By:JACOB Mccord [facility] CM Progress Note CM Note CM Note Notes: Yesterday pt went home with [facility], orders were sent in [employer]. Date Signed: 05/19/2018 08:53 AM Electronically Signed By:JACOB Mccord Intervention Information Intervention Type:*IM-Signed Date of Service:05/18/2018 11:21 AM Patient Type:Inpatient Staff Member:Nemo Harden Hours: Discipline: Severity: Comment:
== END 2018-05-18 15:46 | disposition home health service (06) | DRG 470 ==
LOC: F3N 05:52
PROVIDERS: ADMIT Orthopaedic Surgery; ATTEND Orthopaedic Surgery
PROC: 0SRD0JZ Replacement of Left Knee Joint with Synthetic Substitute, Open Approach (ICD-10-PCS; principal; 2018-05-16 07:15)
DX: M17.12 Unilateral primary osteoarthritis, left knee (principal); R11.0 Nausea; I95.9 Hypotension, unspecified; R09.02 Hypoxemia; E66.9 Obesity, unspecified; Z68.35 Body mass index [BMI] 35.0-35.9, adult; J45.909 Unspecified asthma, uncomplicated; D86.9 Sarcoidosis, unspecified; Z87.440 Personal history of urinary (tract) infections
CPT/HCPCS: 97110-GP; 97116-GP; 97161-GP; 97166-GO; 97530-GO; 97530-GP; 97535-GO; J0171; J1885; J2001; J2270; J2405; J2550; J2704; J2795